=== PATIENT | female | born 1940 | race African-American/Black ===

== ENCOUNTER 2020-07-02 03:06 | Emergency (ER) | payer OTHER ==
[~2020-07-02] VITALS: Ht 172.7 cm; Wt 88.0 kg
[2020-07-02] MEDS ORDERED: ENALAPRIL 2.5MG TABLET PO ONE (03:45)
[2020-07-02 05:16] VITALS: BP 118/81
== END 2020-07-02 05:24 | disposition home or self-care (01) ==
LOC: ER 03:06
DX: I10 Essential (primary) hypertension (principal); M19.90 Unspecified osteoarthritis, unspecified site; Z95.0 Presence of cardiac pacemaker
CPT/HCPCS: 93005; 99283

== ENCOUNTER 2023-11-16 00:54 | Emergency (ER) | payer OTHER ==
[~2023-11-16] VITALS: Ht 175.3 cm; Wt 100.0 kg
[2023-11-16 00:58] VITALS: TEMP 98.6; O2SAT 98
[2023-11-16] MEDS: ACETAMINOPHEN 325MG TABLET PO ONE (01:59)
[2023-11-16 03:22] VITALS: BP 150/85; PULSE 82; RESP 18; O2SAT 97
[2023-11-16] MEDS ORDERED: ACET-2708 MT (03:38)
== END 2023-11-16 04:00 | disposition home or self-care (01) ==
LOC: ER 00:54
DX: S00.511A Abrasion of lip, initial encounter (principal); M25.552 Pain in left hip; R51.9 Headache, unspecified; I10 Essential (primary) hypertension; E11.9 Type 2 diabetes mellitus without complications; W01.0XXA Fall on same level from slipping, tripping and stumbling without subsequent striking against object, initial encounter; Y93.89 Activity, other specified; Y92.89 Other specified places as the place of occurrence of the external cause; Y99.8 Other external cause status
CPT/HCPCS: 73502; 99284